=== PATIENT | female | born 1980 | race Caucasian/White ===

== ENCOUNTER 2018-05-23 19:36 | Emergency (ER) | payer MEDICAID, OTHER ==
[~2018-05-23] VITALS: Ht 157.5 cm; Wt 108.9 kg
--- NOTE | 2018-05-23 19:36 | NUR ---
Placed in room 1 Placed on pvc monitor, blood pressure machine and pulse oximeter. To gown for exam. Side rails up
[2018-05-23 19:39] VITALS: BP_SYST 151
--- NOTE | 2018-05-23 19:39 | NUR ---
Placed in room 1 . Placed on senior software tester, blood pressure machine and pulse oximeter. To gown for exam. Side rails up. Report given to CHARLENE CONTRERAS/JOSE CONTRERAS.
--- NOTE | 2018-05-23 19:40 | NUR ---
Pt BIB [facility] C/O Rapid HR, Pt states [place] on [address], felt like she was having a rapid HR, then she pulled off [address] then was transported by ambulance to ED. Pt has hx of anxiety and fast HR. Pt took 1 dose of PO ativan around 3pm. Pt also states 2 days ago / Sunday morning received Adenosine medication by paramedics for HR of 160, then "I got better." No other complaints and injuries at this time. Pt resting on gurney with rails up
--- NOTE | 2018-05-23 19:50 | NUR ---
ER Dr. Renee at bedside examining patient.
[2018-05-23 20:25] LABS: HEMATOCRIT 34.4 % (36-48); HEMOGLOBIN 11.4 g/dL (12.0-16.0); MEAN CORPUSCULAR HEMOGLOBIN 28 pg (27-31); MEAN CORPUSCULAR HGB CONC 33 % (32-36); MEAN CORPUSCULAR VOLUME 83 fL (79.0-98.0); PLATELET COUNT (AUTO) 407 K/uL (130-430); RED BLOOD CELL COUNT(AUTO) 4.13 MIL/uL (4.2-6.2); RED CELL DISTRIBUTION WIDTH 14.2 % (9.0-15.0); WHITE BLOOD COUNT (AUTO) 5.8 K/uL (4.8-10.8)
[2018-05-23 20:26] LABS: BASOPHILS % (AUTO) 0.5 % (0.0-2.0); EOSINOPHILS # (AUTO) 0.1 K/uL (0.0-0.4); EOSINOPHILS % (AUTO) 1.4 % (0.0-4.0); LYMPHOCYTES # (AUTO) 1.4 K/uL (1.0-5.5); LYMPHOCYTES % (AUTO) 24.2 % (20.5-51.5); MONOCYTES # (AUTO) 0.3 K/uL (0.0-1.0); MONOCYTES % (AUTO) 5.9 % (1.7-9.3)
[2018-05-23 20:28] LABS: INR 0.9 (0.8-1.2); PROTHROMBIN TIME 9.3 SECS (9.5-12.5)
[2018-05-23 20:35] LABS: CALCIUM 8.7 mg/dL (8.4-11.0); CREATININE 0.64 mg/dL (0.55-1.30); POTASSIUM 3.2 mmol/L (3.5-5.1)
[2018-05-23 20:40] LABS: ALBUMIN 3.3 g/dL (3.4-4.8); TOTAL BILIRUBIN 0.4 mg/dL (0.0-1.0)
[2018-05-23 21:03] LABS: BARBITURATE, URINE NEGATIVE (NEG <=200); BENZODIAZEPINE, URINE POSITIVE (NEG <=150); CANNABINOID, URINE NEGATIVE (NEG <=50); COCAINE, URINE NEGATIVE (NEG <=150); METHAMPHETAMINES SCREEN,URINE NEGATIVE (NEG <=500); OPIATE, URINE NEGATIVE (NEG <=100); PHENCYCLIDINE SCREEN,URINE NEGATIVE (NEG <=25); UR TRICYCLIC ANTIDEPRESSANTS NEGATIVE (NEG <=300); URINE AMPHETAMINE NEGATIVE (NEG <=500); URINE METHADONE NEGATIVE (NEG <=200); URINE OXYCODONE SCREEN NEGATIVE (NEG <=100); URINE PROPOXYPHENE SCREEN NEGATIVE (NEG <=300)
--- NOTE | 2018-05-23 22:00 | NUR ---
Pt in stable condition with HR trending down. Pt verbalize "feeling better." Resting on gurney with rails up
[2018-05-23 22:07] VITALS: BP_SYST 151
--- NOTE | 2018-05-23 22:07 | NUR ---
Patient given written and verbal discharge instructions and verbalizes understanding. ER MD discussed with patient the results and treatment provided. Patient in stable condition. ID arm band removed. Patient educated on pain management and to follow up with PMD. Pain Scale 0/10. Opportunity for questions provided and answered.
== END 2018-05-23 22:07 | disposition home or self-care (01) ==
LOC: SED 19:36
DX: F40.10 Social phobia, unspecified (principal); R73.03 Prediabetes; R03.0 Elevated blood-pressure reading, without diagnosis of hypertension; E66.01 Morbid (severe) obesity due to excess calories; R79.1 Abnormal coagulation profile; Z68.41 Body mass index [BMI] 40.0-44.9, adult; Z88.0 Allergy status to penicillin
CPT/HCPCS: 36415; 71045; 80053; 80307; 81025; 82550-TC; 84443-TC; 84484; 85025; 85610-TC; 93005; 99284

== ENCOUNTER 2018-11-26 19:37 | Emergency (ER) | payer OTHER ==
[~2018-11-26] VITALS: Ht 157.5 cm; Wt 108.9 kg
[2018-11-26 19:50] VITALS: BP_SYST 157
--- NOTE | 2018-11-26 21:34 | NUR ---
Pt called from waiting room, no answer. Pt not found in ED waiting room, ED bathroom, or outside ED entrance
== END 2018-11-26 19:50 | disposition left against medical advice (07) ==
LOC: SED 19:37
DX: F41.9 Anxiety disorder, unspecified (principal); Z53.21 Procedure and treatment not carried out due to patient leaving prior to being seen by health care provider
CPT/HCPCS: 96361; 96374; 96376; 99291